=== PATIENT | male | born 1960 | race Caucasian/White ===

== ENCOUNTER 2023-03-08 22:29 | Observation (INO) | payer BC ==
--- OUTSIDE RECORDS SUMMARY | 2023-03-08 22:54 | XMS REPORT | Continuity of Care Document ---
:1960 Author Organization [facility] t Address [address] [place] [address] Care Team Providers Name Role Phone Fela Attending Clinician Unavailable RHONDA GREEN Attending Clinician Unavailable RA COTTON M.D. Attending Clinician Unavailable RA COTTON Attending Clinician Unavailable Fela Admitting Clinician Unavailable Payers Payer Name Policy Type Policy Number Effective Date Expiration Date S s[place] [id number] 2020 00:00:00 [place] Problems Condition Condition Condition Status Onset Resolution Last Treating Co mments Source Name Details Category Date Date Treatment Clinician Date Hyperlipid Hyperlipid Problem Active [facility] emia due emia Due 5-15 Family to type 2 to Type 2 00:00: Prac tic diabetes Diabetes 00 e mellitus Mellitus Type II Type II Problem Active [facility] diabetes Diabetes 8-23 Family mellitus Mellitus 00:00: Practi c uncontroll Uncontroll 00 e ed ed Mixed Mixed Problem Active 2019-08 [facility] hyperlipid Hyperlipid 2 [facility] emia emia 00:00: Practic 00 e Bipolar Bipolar Problem Active [facility] disorder Disorder 9-19 Family 00:00: Practic 00 e Nicotine Nicotine Problem Active Guzmán ge dependence Dependence 05-09 [facility] 00:00: Practic 00 e Otitis Otitis Problem Active [facility] externa Externa 05-09 Family 00:00: Practic e Hypertensi Hypertensi Problem Active [facility] ve ve 05-09 Family disorder Disorder 00:00: Practi c e Medication Medication Problem Active [facility] monitoring Monitoring 05-09 Timothy dinh 00:00: Practic e Hematoma Hematoma Problem Active [facility] of right of right Physic i knee knee ans region region Prepatella Prepatella Problem Active U T r bursitis r bursitis Ph ysici of right of right ans knee knee Encounter Encounter Problem Active [facility] for for Physici administra administra an s tion of tion of COVID-19 COVID-19 vaccine vaccine Allergies, Adverse Reactions, Alerts This patient has no known allergies or adverse reactions. Social History Smoking Status Start Date Stop Date Source Never Smoker [facility] P racmina Medications Ordered Filled Start Stop Current Ordering Indication Dosage Frequency Signature Comments Components Source Medication Medication Date Date Medication? Clinician (SIG) Name Name Sulfamethox Sulfamethox Yes RA 1 QD TAKE 1 UT azole-Trime azole-Trime 1-25 COTTON TABLET Physici thoprim thoprim 00:00: M.D. Daily TAKE a ns 800-160 MG 800-160 MG 00 2 TABLETS Oral Tablet Oral Tablet ON THE 1ST DAY AND 1 TABLET DAILY AFTER HYDROcodone HYDROcodone Yes RA Q6H TAKE 1 UT -Acetaminop -Acetaminop 1-22 COTTON TABLET Physici hen 10-325 hen 10-325 00:00: M.D. Every 6 ans MG Oral MG Oral 00 hours PRN Tablet Tablet for severe pain Senna Plus Senna Plus Yes RA 2 QD TAKE 2 UT 50-8.6 MG 50-8.6 MG 1-22 COTTON CAPSULE Physici Oral Oral 00:00: M.D. Daily FOR ans Capsule Capsule 00 CONSTIPATI ON Ondansetron Ondansetron Yes RA 1 Q8H TAKE 1 UT HCl - 4 MG HCl - 4 MG 1-22 COTTON TABLET Physici Oral Tablet Oral Tablet 00:00: M.D. EVERY 8 ans 00 HOURS PRN for Nausea metformin metformin No 2 BID metformin [facility] 500 mg 500 mg 500 mg Family tablet Take tablet Take tablet Practic 2 tablets 2 tablets Take 2 e twice a day twice a day tablets by oral by oral twice a route with route with day by meals. meals. oral route with meals. rosuvastati rosuvastati No rosuvastat [facility] n 20 mg n 20 mg in 20 mg Famil y tablet TAKE tablet TAKE tablet Practic 1 TABLET BY 1 TABLET BY TAKE 1 e MOUTH ONCE MOUTH ONCE TABLET BY DAILY IN DAILY IN MOUTH ONCE THE EVENING THE EVENING DAILY IN THE EVENING Rybelsus 7 Rybelsus 7 No 1 Q1D Rybelsus 7 [facility] mg tablet mg tablet mg tablet Family Take 1 Take 1 Take 1 Practic tablet tablet tablet e every day every day every day by oral by oral by oral route for route for route for 30 days. 30 days. 30 days. sertraline sertraline No sertraline [facility] 100 mg 100 mg 100 mg Family tablet TAKE tablet TAKE tablet Practic 1 TABLET BY 1 TABLET BY TAKE 1 e MOUTH ONCE MOUTH ONCE TABLET BY DAILY DAILY MOUTH ONCE DAILY ziprasidone ziprasidone No ziprasidon [facility] 40 mg 40 mg e 40 mg Family capsule capsule capsule Practi c TAKE 1 TAKE 1 TAKE 1 e CAPSULE BY CAPSULE BY CAPSULE BY MOUTH AT MOUTH AT MOUTH AT BEDTIME BEDTIME BEDTIME amlodipine amlodipine No amlodipine [facility] 5 mg tablet 5 mg tablet 5 mg F amily TAKE 1 TAKE 1 tablet Practic TABLET BY TABLET BY TAKE 1 e MOUTH ONCE MOUTH ONCE TABLET BY DAILY DAILY MOUTH ONCE DAILY Aspir-81 mg Aspir-81 mg No 1 Q1D Aspir-81 [facility] tablet,carol tablet,carol mg F amily yed release yed release tablet,del Practic Take 1 Take 1 ayed e tablet tablet release every day every day Take 1 by oral by oral tablet route. route. every day by oral route. fenofibrate fenofibrate No fenofibrat [facility] 160 mg 160 mg e 160 mg Family tablet TAKE tablet TAKE tablet Practic 1 TABLET BY 1 TABLET BY TAKE 1 e MOUTH ONCE MOUTH ONCE TABLET BY DAILY DAILY MOUTH ONCE DAILY lisinopril lisinopril No lisinopril [facility] 20 mg 20 mg 20 mg Family tablet TAKE tablet TAKE tablet Practic 1 TABLET BY 1 TABLET BY TAKE 1 e MOUTH ONCE MOUTH ONCE TABLET BY DAILY DAILY MOUTH ONCE DAILY metformin metformin No metformin [facility] 500 mg 500 mg 500 mg Family tablet TAKE tablet TAKE tablet Practic 1 TABLET BY 1 TABLET BY TAKE 1 e MOUTH TWICE MOUTH TWICE TABLET BY DAILY DAILY MOUTH TWICE DAILY rosuvastati rosuvastati No rosuvastat [facility] n 20 mg n 20 mg in 20 mg Famil y tablet TAKE tablet TAKE tablet Practic 1 TABLET BY 1 TABLET BY TAKE 1 e MOUTH ONCE MOUTH ONCE TABLET BY DAILY IN DAILY IN MOUTH ONCE THE EVENING THE EVENING DAILY IN THE EVENING Rybelsus 7 Rybelsus 7 No Rybelsus 7 [facility] mg tablet mg tablet mg tablet Family Take 1 Take 1 Take 1 Practic tablet by tablet by tablet by e mouth once mouth once mouth once daily daily daily sertraline sertraline No sertraline [facility] 100 mg 100 mg 100 mg Family tablet TAKE tablet TAKE tablet Practic 1 TABLET BY 1 TABLET BY TAKE 1 e MOUTH ONCE MOUTH ONCE TABLET BY DAILY DAILY MOUTH ONCE DAILY ziprasidone ziprasidone No ziprasidon [facility] 40 mg 40 mg e 40 mg Family capsule capsule capsule Practi c Take 1 Take 1 Take 1 e capsule by capsule by capsule by mouth at mouth at mouth at bedtime bedtime bedtime amlodipine amlodipine No amlodipine [facility] 5 mg tablet 5 mg tablet 5 mg F amily TAKE 1 TAKE 1 tablet Practic TABLET BY TABLET BY TAKE 1 e MOUTH ONCE MOUTH ONCE TABLET BY DAILY DAILY MOUTH ONCE DAILY Aspir-81 mg Aspir-81 mg No 1 Q1D Aspir-81 [facility] tablet,carol tablet,carol mg F amily yed release yed release tablet,del Practic Take 1 Take 1 ayed e tablet tablet release every day every day Take 1 by oral by oral tablet route. route. every day by oral route. fenofibrate fenofibrate No fenofibrat [facility] 160 mg 160 mg e 160 mg Family tablet TAKE tablet TAKE tablet Practic 1 TABLET BY 1 TABLET BY TAKE 1 e MOUTH ONCE MOUTH ONCE TABLET BY DAILY DAILY MOUTH ONCE DAILY FreeStyle FreeStyle No FreeStyle [facility] Bobbi 14 Bobbi 14 Bobbi 14 Fam jarad Day Sensor Day Sensor Day Sensor Practic kit USE kit USE kit USE e EVERY 2 EVERY 2 EVERY 2 WEEKS WEEKS WEEKS lisinopril lisinopril No lisinopril [facility] 20 mg 20 mg 20 mg Family tablet TAKE tablet TAKE tablet Practic 1 TABLET BY 1 TABLET BY TAKE 1 e MOUTH ONCE MOUTH ONCE TABLET BY DAILY DAILY MOUTH ONCE DAILY metformin metformin No metformin [facility] 500 mg 500 mg 500 mg Family tablet Take tablet Take tablet Practic 1 tablet by 1 tablet by Take 1 e mouth twice mouth twice tablet by daily daily mouth twice daily rosuvastati rosuvastati No rosuvastat [facility] n 20 mg n 20 mg in 20 mg Famil y tablet TAKE tablet TAKE tablet Practic 1 TABLET BY 1 TABLET BY TAKE 1 e MOUTH ONCE MOUTH ONCE TABLET BY DAILY IN DAILY IN MOUTH ONCE THE EVENING THE EVENING DAILY IN THE EVENING Rybelsus 14 Rybelsus 14 No 1 Q1D Rybelsus [facility] mg tablet mg tablet 14 mg Fami ly Take 1 Take 1 tablet Practic tablet tablet Take 1 e every day every day tablet by oral by oral every day route. route. by oral route. Rybelsus 7 Rykamsus 7 No Rykamsus 7 [facility] mg tablet mg tablet mg tablet Family Take 1 Take 1 Take 1 Practic tablet by tablet by tablet by e mouth once mouth once mouth once daily daily daily sertraline sertraline No sertraline [facility] 100 mg 100 mg 100 mg Family tablet TAKE tablet TAKE tablet Practic 1 TABLET BY 1 TABLET BY TAKE 1 e MOUTH ONCE MOUTH ONCE TABLET BY DAILY DAILY MOUTH ONCE DAILY ziprasidone ziprasidone No ziprasidon [facility] 40 mg 40 mg e 40 mg Family capsule capsule capsule Practi c Take 1 Take 1 Take 1 e capsule by capsule by capsule by mouth at mouth at mouth at bedtime bedtime bedtime amlodipine amlodipine No amlodipine [facility] 5 mg tablet 5 mg tablet 5 mg F amily TAKE 1 TAKE 1 tablet Practic TABLET BY TABLET BY TAKE 1 e MOUTH ONCE MOUTH ONCE TABLET BY DAILY DAILY MOUTH ONCE DAILY Aspir-81 mg Aspir-81 mg No 1 Q1D Aspir-81 [facility] tablet,carol tablet,carol mg F amily yed release yed release tablet,del Practic Take 1 Take 1 ayed e tablet tablet release every day every day Take 1 by oral by oral tablet route. route. every day by oral route. fenofibrate fenofibrate No fenofibrat [facility] 160 mg 160 mg e 160 mg Family tablet TAKE tablet TAKE tablet Practic 1 TABLET BY 1 TABLET BY TAKE 1 e MOUTH ONCE MOUTH ONCE TABLET BY DAILY DAILY MOUTH ONCE DAILY lisinopril lisinopril No lisinopril [facility] 20 mg 20 mg 20 mg Family tablet TAKE tablet TAKE tablet Practic 1 TABLET BY 1 TABLET BY TAKE 1 e MOUTH ONCE MOUTH ONCE TABLET BY DAILY DAILY MOUTH ONCE DAILY Immunizations Ordered Immunization Filled Immunization Date Status Commen ts Source Name Name influenza, influenza, 2022-04-29 Completed [facility] unspecified unspecified 00:00:00 Practice formulation formulation COVID-19, mRNA, COVID-19, mRNA, 2021-07-16 Completed Vill age Family LNP-S, PF, 30 LNP-S, PF, 30 00:00:00 Practice mcg/0.3 mL dose mcg/0.3 mL dose (Pfizer-BioNTech) (Pfizer-BioNTech) COVID-19, mRNA, COVID-19, mRNA, 2021-07-16 Completed Vill age Family LNP-S, PF, 30 LNP-S, PF, 30 00:00:00 Practice mcg/0.3 mL dose mcg/0.3 mL dose (Pfizer-BioNTech) (Pfizer-BioNTech) COVID-19, mRNA, COVID-19, mRNA, 2021-07-16 Completed [facility] Family LNP-S, PF, 30 LNP-S, PF, 30 00:00:00 Practice mcg/0.3 mL dose mcg/0.3 mL dose (Pfizer-BioNTech) (Pfizer-BioNTech) COVID-19, mRNA, COVID-19, mRNA, 2020-11-01 Completed [facility] Family LNP-S, PF, 30 LNP-S, PF, 30 00:00:00 Practice mcg/0.3 mL dose mcg/0.3 mL dose (Pfizer-BioNTech) (Pfizer-BioNTech) COVID-19, mRNA, COVID-19, mRNA, 2020-11-01 Completed [facility] Family LNP-S, PF, 30 LNP-S, PF, 30 00:00:00 Practice mcg/0.3 mL dose mcg/0.3 mL dose (Pfizer-BioNTech) (Pfizer-BioNTech) COVID-19, mRNA, COVID-19, mRNA, 2020-11-01 Completed [facility] Family LNP-S, PF, 30 LNP-S, PF, 30 00:00:00 Practice mcg/0.3 mL dose mcg/0.3 mL dose (Pfizer-BioNTech) (Pfizer-BioNTech) COVID-19, mRNA, COVID-19, mRNA, 2020-10-11 Completed [facility] Family LNP-S, PF, 30 LNP-S, PF, 30 00:00:00 Practice mcg/0.3 mL dose mcg/0.3 mL dose (Pfizer-BioNTech) (Pfizer-BioNTech) COVID-19, mRNA, COVID-19, mRNA, 2020-10-11 Completed [facility] Family LNP-S, PF, 30 LNP-S, PF, 30 00:00:00 Practice mcg/0.3 mL dose mcg/0.3 mL dose (Pfizer-BioNTech) (Pfizer-BioNTech) COVID-19, mRNA, COVID-19, mRNA, 2020-10-11 Completed Vill age Family LNP-S, PF, 30 LNP-S, PF, 30 00:00:00 Practice mcg/0.3 mL dose mcg/0.3 mL dose (Pfizer-BioNTech) (Pfizer-BioNTech) Pfizer-BioNTech 2020-10-11 Completed [facility] COVID-19 Vacc 30 00:00:00 MCG/0.3ML Intramuscular Suspension Tdap Tdap 2018-12-03 Completed [facility] Family 16:23:41 Practice Tdap Tdap 2018-12-03 Completed [facility] Family 16:23:41 Practice Tdap Tdap 2018-12-03 Completed [facility] Family 16:23:41 Practice Vital Signs Vital Name Observation Time Observation Value Comments Source BP Diastolic 2023-01-02 00:00:00 78 mm[Hg] [facility] Family Practice Height 2023-01-02 00:00:00 73 [in_i] [facility] Family Practice BMI (Body Mass 2023-01-02 00:00:00 30.2 kg/m2 [facility]) Practice BP Systolic 2023-01-02 00:00:00 130 mm[Hg] [facility] Practice Body Weight 2023-01-02 00:00:00 229 [lb_av] [facility] Family Practice BP Diastolic 2021-11-08 00:00:00 90 mm[Hg] [facility] Family Practice Height 2021-11-08 00:00:00 73 [in_i] [facility] Family Practice BMI (Body Mass 2021-11-08 00:00:00 31.7 [facility] BP Systolic 2021-11-08 00:00:00 140 mm[Hg] [facility] Family Practice Body Weight 2021-11-08 00:00:00 240 [lb_av] [facility] Family Practice Height 2021-04-12 00:00:00 73 [in_i] [facility] Practice BP Diastolic 2020-09-09 00:00:00 80 mm[Hg] [facility] Height 2020-09-09 00:00:00 73 [in_i] [facility] BMI (Body Mass 2020-09-09 00:00:00 31.7 kg/m2 [facility]) Practice BP Systolic 2020-09-09 00:00:00 130 mm[Hg] [facility] Body Weight 2020-09-09 00:00:00 240 [lb_av] [facility] Height 2020-01-21 00:00:00 73 [in_i] [facility] Practice BP Diastolic 2019-06-19 00:00:00 80 mm[Hg] [facility] Height 2019-06-19 00:00:00 73 [in_i] [facility] BMI (Body Mass 2019-06-19 00:00:00 31.4 kg/m2 [facility] Family Index) Practice BP Systolic 2019-06-19 00:00:00 130 mm[Hg] [facility] Body Weight 2019-06-19 00:00:00 238 [lb_av] [facility] Family Practice BP Diastolic 2018-12-03 00:00:00 80 mm[Hg] [facility] Height 2018-12-03 00:00:00 73 [in_i] [facility] Family Practice BMI (Body Mass 2018-12-03 00:00:00 31.9 kg/m2 [facility]) Practice BP Systolic 2018-12-03 00:00:00 130 mm[Hg] [facility] Family Practice Body Weight 2018-12-03 00:00:00 242 [lb_av] [facility] Family Practice Body height 2020-08-27 09:27:00 73 [in_us] [facility] Weight 2020-08-27 09:27:00 245 [lb_av] [facility] Body mass index 2020-08-27 09:27:00 32.32 kg/m2 [facility] (BMI) [Ratio] BP Diastolic 2017-11-07 00:00:00 86 mm[Hg] [facility] Height 2017-11-07 00:00:00 73 [in_i] [facility] Family Practice BMI (Body Mass 2017-11-07 00:00:00 31 kg/m2 [facility] Index) Practice BP Systolic 2017-11-07 00:00:00 134 mm[Hg] [facility] Body Weight 2017-11-07 00:00:00 235 [lb_av] [facility] BP Diastolic 2017-05-09 00:00:00 88 mm[Hg] [facility] Height 2017-05-09 00:00:00 73 [in_i] [facility] BMI (Body Mass 2017-05-09 00:00:00 31.2 kg/m2 [facility] Index) Practice BP Systolic 2017-05-09 00:00:00 132 mm[Hg] [facility] Body Weight 2017-05-09 00:00:00 236.2 [lb_av] [facility] Procedures Procedure Date / Time Performed Performing Clinician Sourc e US, kidney 2023-01-02 00:00:[address] [facility] ly Practice IMG RTA DETC/MNTR DS 2021-11-08 00:00:00 [facility] PHY/QHP Practice Post Op Promis 29 2020-10-16 00:00:00 [facility] [U] XRAY KNEE 4 OR 2020-09-10 00:00:00 [facility] MORE VWS RIGHT [id number] photo, eye, retina 2017-05-09 00:00:00 [facility] Practice Other 2013-08-21 00:00:00 [facility] Plan of Care Planned Activity Planned Date Details Comments Source Diagnostic Test 2023-01-02 HbA1c (hemoglobin [facility] Pending 00:00:00 A1c), blood [code Practice = HbA1c (hemoglobin A1c), blood] Diagnostic Test 2023-01-02 C[facility] 00:[facility]:00 plasma [code = Practice CMP, serum or plasma] Diagnostic Test 2023-01-02 lipid panel, serum [facility] Pending 00:00:00 [code = lipid Practice panel, serum] Diagnostic Test 2023-01-02 CBC w/ auto diff [facility] Pending 00:00:00 [code = CBC w/ Practice auto diff] Diagnostic Test 2023-01-02 TSH, [facility] 00:00:00 plasma [code = Practice TSH, serum or plasma] Diagnostic Test 2023-01-02 PSA, [facility] 00:00:00 plasma [code = Practice PSA, serum or plasma] Diagnostic Test 2023-01-02 microalbumin/creat [facility] Family Pending 00:00:00 inine, mass ratio, Practice urine [code = microalbumin/creat inine, mass ratio, urine] Diagnostic Test 2023-01-02 urinalysis, [facility] Derick reagan Pending 00:00:00 dipstick [code = Practice urinalysis, dipstick] Diagnostic Test 2023-01-02 fecal occult Sandra Sepulveda ly Pending 00:00:00 blood, stool [code Practice = fecal occult blood, stool] Future Appointment 2023-04-04 Sarah Alejo, [address] 00:00:00 Charlotte Tapia; Practice [address], [place] [address] Encounters Start End Encounter Admission Attending Care Care Encounter Source Date/Time Date/Time Type Type Clinicians Facility Department ID 2023-01-15 2023-01-15 Outpatient Domask_M_HO VFP VFP [id number] [facility] 00:00:00 00:00:00 U_ [id number] Family Practic e 2023-01-02 2023-01-02 Outpatient Domask_M VFP VFP [id number] [facility] 00:00:00 00:00:00 [id number] Family Practic e 2023-01-02 2023-01-02 Outpatient Domask_M VFP VFP [id number] [facility] 00:00:00 00:00:00 [id number] Family Practic e 2023-01-02 2023-01-02 Sarah VFP [place] - [id number] V illage 00:00:00 00:00:00 [facility] Addison Alejo, Medical - Practi bryan CARRILLO: [id number] [place] - nicci Porter [facility] [address], [place] [address] , Ph. 2022-12-30 2022-12-30 Outpatient Domask_M VFP VFP [id number] [facility] 00:00:00 00:00:00 [id number] Family Practic e 2022-12-30 2022-12-30 Outpatient VFP VFP [id number] [facility] 00:00:00 00:00:00 [id number] Family Practic e 2022-06-04 2022-06-04 Outpatient Domask_M VFP VFP [id number] [facility] 00:00:00 00:00:00 [id number] Family Practic e 2022-05-23 2022-05-23 Outpatient Domask_M VFP VFP [id number] [facility] 00:00:00 00:00:00 [id number] Family Practic e 2022-05-23 2022-05-23 Sarah VFP [place] - [id number] V illage 00:00:00 00:00:00 [facility] Mary Jane Alves MD: [id number] [facility] [address], [place] [address] , Ph. 2022-03-23 2022-03-23 Outpatient Domask_M VFP VFP [id number] [facility] 00:00:00 00:00:00 [id number] Family Practic e 2022-01-28 2022-01-28 Outpatient Domask_M VFP VFP [id number] [facility] 00:00:00 00:00:00 [id number] Family Practic e 2021-12-24 2021-12-24 Outpatient Domask_M VFP VFP [id number] [facility] 06:31:00 06:31:00 [id number] Family Practic e 2021-11-18 2021-11-18 Outpatient Domask_M VFP VFP [id number] [facility] 03:40:00 03:40:00 [id number] Family Practic e 2021-11-15 2021-11-15 Outpatient Domask_M VFP VFP [id number] [facility] 04:09:00 04:09:00 [id number] Family Practic e 2021-11-08 2021-11-08 Outpatient Domask_M VFP VFP [id number] [facility] 04:16:00 04:16:00 [id number] Family Practic e 2021-11-08 2021-11-08 Sarah VFP [place] - [id number] V illage 00:00:00 00:00:00 [facility] Mary Jane Alves MD: [id number] grajeda Charoltte [facility], [address], [place] [address] , Ph. 2021-11-05 2021-11-05 Outpatient Domask_M VFP VFP [id number] [facility] 11:17:00 11:17:00 [id number] Family Practic e 2021-11-03 2021-11-03 Outpatient Domask_M VFP VFP [id number] [facility] 07:50:00 07:50:00 [id number] Family Practic e 2021-07-02 2021-07-02 Outpatient Domask_M VFP VFP [id number] - [facility] 01:44:00 01:44:00 [id number] Family Practic e 2021-05-28 2021-05-28 Outpatient Domask_M VFP VFP [id number] - [facility] 02:28:00 02:28:00 [id number] Family Practic e 2021-05-28 2021-05-28 Outpatient Domask_M VFP VFP [id number] - [facility] 02:28:00 02:28:00 [id number] Family Practic e 2021-04-24 2021-04-24 Outpatient Domask_M VFP VFP [id number] [facility] 01:02:00 01:02:00 [id number] Family Practic e 2021-04-14 2021-04-14 Outpatient Domask_M VFP VFP [id number] - [facility] 05:36:00 05:36:00 [id number] Family Practic e 2021-04-12 2021-04-12 Outpatient Domask_M VFP VFP [id number] - [facility] 05:46:00 05:46:00 [id number] Family Practic e 2021-04-12 2021-04-12 Sarah VFP [place] - [id number] V illage 00:00:00 00:00:00 [facility] Addison y Sapna, Medical - Practi bryan CARRILLO: [address] _Natalie grajeda [facility], [address], [place] [address] , Ph. 2021-04-01 2021-04-01 Outpatient Domask_M VFP VFP [id number] 202 [facility] 02:23:00 02:23:00 [id number] Family Practic e 2020-10-11 2020-10-11 Appointmen TEO GREEN [id number] [place] 17:40:00 17:40:00 t; CO19, NURSE-TERRIE pacheco NURSE-ROBERT Y ans EY 2020-09-24 2020-09-24 [id number] [place] 10:00:00 10:00:00 t; Favio KNAPP at [facility] bhargavi KNAPP, [facility], POD 3 2020-09-24 2020-09-24 Outpatient Domask_M VFP VFP [id number] -[id number] [facility] 02:02:00 02:02:00 [id number] Family Practic e 2020-09-24 2020-09-24 Outpatient Domask_M VFP VFP [id number] -[id number] [facility] 02:02:00 02:02:00 [id number] Family Practic e 2020-09-17 2020-09-17 [facility] [id number] [place] 10:15:00 10:15:00 t; Favio KNAPP at [facility] bhargavi KNAPP, [facility], POD 3 2020-09-14 2020-09-14 Outpatient LULA, [facility] [id number] 08:05:00 23:59:00 RA [facility] 2020-09-14 2020-09-14 [facility] [id number] [place] 11:00:00 11:00:00 t; Paul KNAPP. [facility] bhargavi COTTON M.D. 2020-09-11 2020-09-11 Outpatient Domask_M VFP VFP [id number] [facility] 04:27:00 04:27:00 [id number] Family Practic e 2020-09-10 2020-09-10 Cherelle COTTON [facility] Orthopedics [id number] [place] 10:45:00 10:45:00 t; Favio KNAPP at [facility] bhargavi KNAPP Medicine Favio [facility] 2020-09-09 2020-09-09 Outpatient Domask_M VFP VFP [id number] -[id number] [facility] 12:06:00 12:06:00 [id number] Family Practic e 2020-09-09 2020-09-09 Sarah VFP [place] - [id number] V illage 00:00:00 00:00:00 [facility] Mary Jane Alves - Sanaz adams MD: 9[address] FIFIHOU_[facility] nicci Charlotte garrettdeuce [facility], [address], [place] [address] , Ph. 2020-08-27 2020-08-27 Fadyping COTTON [facility] [id number] [place] 09:15:00 09:15:00 t; Paul KNAPP. [facility] bhargavi COTTON M.D. 2020-07-30 2020-07-30 Outpatient VFP VFP [id number] [facility] 11:53:00 11:53:00 [id number] Family Practic e 2020-07-30 2020-07-30 Outpatient VFP VFP [id number] [facility] 11:53:00 11:53:00 [id number] Family Practic e 2020-07-30 2020-07-30 Outpatient Domask_M VFP VFP [id number] -202 [facility] 11:53:00 11:53:00 [id number] Family Practic e 2020-07-29 2020-07-29 Outpatient Domask_M VFP VFP [id number] -202 [facility] 04:16:00 04:16:00 [id number] Family Practic e 2020-07-29 2020-07-29 Sarah VFP [place] - [id number] V illage 00:00:00 00:00:00 [facility] Mary Jane Alves MD: [id number] FIFIHOU_Memo nicci [place] [facility], [address], [place] [address] , Ph. 2020-01-26 2020-01-26 Outpatient Domask_M VFP VFP [id number] -202 [facility] 08:26:00 08:26:00 [id number] Family Practic e 2020-01-26 2020-01-26 Outpatient VFP VFP [id number]- 202 [facility] 08:26:00 08:26:00 [id number] Family Practic e 2020-01-21 2020-01-21 Outpatient Domask_M VFP VFP [id number] -202 [facility] 03:44:00 03:44:00 [id number] Family Practic e 2020-01-21 2020-01-21 Sarah VFP [place] - [id number] V illage 00:00:00 00:00:00 [facility] Mary Jane Alves - Sanaz adams MD: [id number] FIFIHOU_Memo e [place] rial [facility] [address] [address] , Ph. 2019-11-26 2019-11-26 Outpatient Domask_M VFP [facility] [id number] -202 [facility] 11:21:00 11:21:00 [id number] Family Practic e 2019-11-26 2019-11-26 Outpatient Domask_M VFP [facility] [id number] -202 [facility] 11:21:00 11:21:00 [id number] Family Practic e 2019-06-19 2019-06-19 Sarah VFP [place] - [id number] V illage 00:00:00 00:00:00 [facility] Famil y Domask, Family Practic MD: [id number] Practice - e [place] [address] [address] , Ph. 2018-12-03 2018-12-03 Sarah VFP [place] - [id number] V illage 00:00:00 00:00:00 [facility] Famil y Domask, Family Practic MD: [id number] Practice - e [place] [address] [address] , Ph. 2017-11-07 2017-11-07 Sarah VFP [place] - [id number] V illage 00:00:00 00:00:00 [facility] Famil y Domask, Family Practic MD: [id number] Practice - e [place] [address] [address] , Ph. 2017-05-09 2017-05-09 Sarah VFP [place] - [id number] V illage 00:00:00 00:00:00 [facility] Famil y Domask, Family Practic MD: [id number] Practice - e [place] [address] [address] , Ph. Results Test Description Test Time Test Comments Results Result Comments Source Urinalysis macro (dipstick) panel - Urine 2023-01-02 15:11:5 1 Test Item Value Reference Range Interpretation Comme nts Interpretation UA test performed using: Automated device/analyzer ( [id number],QW) (test code = Interpretation UA test performed using:) Interpretation Color (test code = Yellow Interpretation Color) Interpretation Clarity (test code = Clear Interpretation Clarity) Interpretation Glucose (mg/dL) (test code Negative = Interpretation Glucose (mg/dL)) Interpretation Bilirubin (test code = Negative Interpretation Bilirubin) Interpretation Ketone (mg/dL) (test code = Negative Interpretation Ketone (mg/dL)) Interpretation Specific [place] (test code 1.025 = Interpretation Specific [place]) Interpretation Occult Blood (test code = Negative Interpretation Occult Blood) Interpretation pH (test code = 5 Interpretation pH) Interpretation Protein (test code = Negative Interpretation Protein) Interpretation Urobilinogen (test code = 0.2 Interpretation Urobilinogen) Interpretation Nitrites (test code = Negative Interpretation Nitrites) Interpretation Leukocytes (test code = Negative Interpretation Leukocytes) [facility] Practice[U] XRAY KNEE 4 OR MORE VWS RIGHT [id number] 11:14:00Images acquired, not reported on this accession number.[facility] Comprehensive metabolic 2000 panel - Serum or [id number] 13:56:00 Test Item Value Reference Range Interpretation Comments ALT (test code = ALT) 38 U/L 0-55 AST (test code = AST) 23 U/L 5-34 BUN (test code = BUN) 16.0 mg/dL 8.4-25.7 alk phos (test code = alk phos) 57 unit/L 40-150 glucose (test code = glucose) 103 mg/dL 70-99 H albumin (test code = albumin) 3.8 g/dL 3.5-5.0 creatinine (test code = 0.98 mg/dL 0.72-1.25 creatinine) eGFR non- (test >60 >60 code = eGFR non-) total bilirubin (test code = 0.4 mg/dL 0.2-1.2 total bilirubin) eGFR - (test >60 >60 code = eGFR - ) sodium (test code = sodium) 143 mEq/L 136-145 potassium (test code = potassium) 4.1 mEq/L 3.5-5.1 chloride (test code = chloride) 109 mmol/L 98-107 H total protein (test code = total 6.8 g/dL 6.4-8.3 protein) calcium (test code = calcium) 9.5 mg/dL 8.4-10.2 CO2 (test code = CO2) 23.2 mmol/L 22.0-29.0 anion gap (test code = anion gap) 11 calc [facility] - Serum or [id number] 13:56:00 Test Item Value Reference Range Interpretation Comments HDL (test code = HDL) 56 mg/dL 40-60 triglyceride (test code = 197 mg/dL 0-149 H triglyceride) VLDL calc. (test code = VLDL calc.) 39 mg/dL cholesterol/HDL ratio (test code = 4.9 mg/dL cholesterol/HDL ratio) non-HDL cholesterol calc. (test 217 mg/dL 0-160 H code = non-HDL cholesterol calc.) cholesterol (test code = 273 mg/dL 0-199 H cholesterol) LDL calc. (test code = LDL calc.) 178 mg/dL 0-130 H [facility] [Units/volume] in Serum or [id number] 13:56:00 Test Item Value Reference Range Interpretation Comments TSH (test code = TSH) 1.540 uIU/mL 0.350-4.940 [facility] Differential panel - [id number] 16:32:00 Test Item Value Reference Range Interpretation Comments WBC (test code = WBC) 8.00 x10*3/?L 4.23-9.07 RBC (test code = RBC) 4.93 10*12/L 4.63-6.08 hemoglobin (test code = 15.00 g/dL 13.70-17.50 hemoglobin) hematocrit (test code = 45.0 % 40.1-51.0 hematocrit) MCV (test code = MCV) 91.3 fL 80.0-100.0 MCH (test code = MCH) 30.4 pg 25.7-32.2 MCHC (test code = MCHC) 33.3 g/dL 32.3-36.5 RDW-SD (test code = RDW-SD) 41.6 fL 35.1-43.9 platelet count (test code = 250.0 k/uL 163.0-337.0 platelet count) MPV (test code = MPV) 11.5 fL 7.5-11.5 neut% (test code = neut%) 71.0 % 34.0-67.9 H lymph% (test code = lymph%) 19.6 % 21.8-53.1 L mon% (test code = mon%) 7.3 % 5.3-12.2 eos% (test code = eos%) 1.5 % 0.8-7.0 baso% (test code = baso%) 0.6 % 0.2-1.2 neut# (test code = neut#) 5.7 x10*3/?L 1.8-5.4 H lymph# (test code = lymph#) 1.6 x10*3/?L 1.3-3.6 mon# (test code = mon#) 0.6 x10*3/?L 0.3-0.8 eos# (test code = eos#) 0.12 x10*3/?L 0.04-0.54 baso# (test code = baso#) 0.05 x10*3/?L 0.01-0.08 [facility] A[facility]/Hemoglobin.total in [id number] 15:17:00 Test Item Value Reference Range Interpretation Comments A1C w/EAG (test code = A1C w/EAG) 7.0 % 1.0-5.7 H average blood glucose (test code = 154 mg/dL average blood glucose) [facility]
--- NOTE | 2023-03-08 22:56 | EDPHYS ---
Physician Documentation [facility] Name: Abdias Galvez Age: 62 yrs Sex: Male : 1960 Arrival Date: 03/08/2023 Time: 22:29 Bed 13 Private MD: ED Physician Leroy Patino HPI: 03/08 22:43 This 62 yrs old Male presents to ER via Ambulatory with complaints of Chest reynold Pain. 22:43 The patient or guardian reports chest pain that is located primarily in the substernal reynold area. Onset: just prior to arrival. The pain radiates to the left arm. Associated signs and symptoms: Pertinent positives: None. The chest pain is described as a heaviness, a pressure. Duration: The patient or guardian reports a single episode, that is still ongoing. Severity of pain: At its worst the pain was mild in the emergency department the pain is unchanged. The patient has not experienced similar symptoms in the past. Historical: - Allergies: 22:39 No Known Allergies; kd3 - PMHx: 22:39 Hypercholesterolemia; Hypertensive disorder; kd3 - Immunization history:: Adult Immunizations up to date. - Social history:: Smoking status: Patient reports use of chewing tobacco. - Family history:: not pertinent. ROS: 22:43 Constitutional: Negative for fever, chills, and weight loss, Eyes: Negative for injury, reynold pain, redness, and discharge, ENT: Negative for injury, pain, and discharge, Neck: Negative for injury, pain, and swelling, Respiratory: Negative for shortness of breath, cough, wheezing, and pleuritic chest pain, Abdomen/GI: Negative for abdominal pain, nausea, vomiting, diarrhea, and constipation, Back: Negative for injury and pain, : Negative for injury, bleeding, discharge, and swelling, MS/Extremity: Negative for injury and deformity, Skin: Negative for injury, rash, and discoloration, Neuro: Negative for headache, weakness, numbness, tingling, and seizure, Psych: Negative for depression, anxiety, suicide ideation, homicidal ideation, and hallucinations, Allergy/Immunology: Negative for hives, rash, and allergies, Endocrine: Negative for neck swelling, polydipsia, polyuria, polyphagia, and marked weight changes, Hematologic/Lymphatic: Negative for swollen nodes, abnormal bleeding, and unusual bruising. 22:43 Cardiovascular: Positive for chest pain, of the chest. Exam: 22:43 Constitutional: This is a well developed, well nourished patient who is awake, alert, reynold and in no acute distress. Head/Face: Normocephalic, atraumatic. Eyes: Pupils equal round and reactive to light, extra-ocular motions intact. Lids and lashes normal. Conjunctiva and sclera are non-icteric and not injected. Cornea within normal limits. Periorbital areas with no swelling, redness, or edema. ENT: Nares patent. No nasal discharge, no septal abnormalities noted. Tympanic membranes are normal and external auditory canals are clear. Oropharynx with no redness, swelling, or masses, exudates, or evidence of obstruction, uvula midline. Mucous membranes moist. Neck: Trachea midline, no thyromegaly or masses palpated, and no cervical lymphadenopathy. Supple, full range of motion without nuchal rigidity, or vertebral point tenderness. No Meningismus. Chest/axilla: Normal chest wall appearance and motion. Nontender with no deformity. No lesions are appreciated. Cardiovascular: Regular rate and rhythm with a normal S1 and S2. No gallops, murmurs, or rubs. Normal PMI, no JVD. No pulse deficits. Respiratory: Lungs have equal breath sounds bilaterally, clear to auscultation and percussion. No rales, rhonchi or wheezes noted. No increased work of breathing, no retractions or nasal flaring. Abdomen/GI: Soft, non-tender, with normal bowel sounds. No distension or tympany. No guarding or rebound. No evidence of tenderness throughout. Back: No spinal tenderness. No costovertebral tenderness. Full range of motion. Male : Normal genitalia with no discharge or lesions. Skin: Warm, dry with normal turgor. Normal color with no rashes, no lesions, and no evidence of cellulitis. MS/ Extremity: Pulses equal, no cyanosis. Neurovascular intact. Full, normal range of motion. Neuro: Awake and alert, GCS 15, oriented to person, place, time, and situation. Cranial nerves II-XII grossly intact. Motor strength 5/5 in all extremities. Sensory grossly intact. Cerebellar exam normal. Normal gait. Psych: Awake, alert, with orientation to person, place and time. Behavior, mood, and affect are within normal limits. 22:55 ECG was reviewed by the Attending Physician. [facility] Vital Signs: 22:46 BP 178 / 92; Pulse 73; Resp 18; Temp 98.1(TE); Pulse Ox 99% on R/A; jb4 23:16 BP 167 / 87 LA; cm10 23:16 BP 166 / 84 RA; cm10 03/09 00:40 Weight 98.43 kg; jb4 NIH Stroke Scale Scores: 03/08 23:21 NIHSS Score: 0 reynold MDM: 22:35 Patient medically screened. reynold 22:43 Differential diagnosis: abnormal EKG, acute pericarditis, anxiety, coronary artery reynold disease chest wall pain, Cholelithiasis gastroesophageal reflux disease (GERD), hiatal hernia, pancreatitis, peptic ulcer disease, pneumonia, pulmonary embolus, stable angina, unstable angina. HEART Score: History: Moderately Suspicious (1), ECG: Normal (0), Age: > 45 and < 65 years (1), Risk Factors: > or = 3 Risk factors for atherosclerotic disease (2), [Hypercholesterolemia] [Hypertension] [+ Family HX] [Obesity] Troponin: < or = 1 x Normal Limit (0). The patient was given aspirin in the Emergency Department. TAN Risk Score: 1 - Three or more CAD risk factors, TOTAL SCORE = 1. Data reviewed: vital signs, nurses notes, lab test result(s), EKG, radiologic studies, plain films. Consideration of Admission/Observation Patient was admitted/placed on observation. Escalation of care including admission/observation considered. I considered the following discharge prescriptions or medication management in the emergency department Medications were administered in the Emergency Department. See MAR. Test considered but Not performed: CT: no ct chest. 03/08 22:36 Order name: Basic Metabolic Panel [facility] 03/08 22:36 Order name: CBC with Diff 03/08 22:36 Order name: LFT's 03/08 22:36 Order name: Magnesium 03/08 22:36 Order name: NT PRO-BNP 03/08 22:36 Order name: PT-INR [facility] 03/08 22:36 Order name: Troponin HS [facility] 03/08 22:36 Order name: Lipase 03/08 22:36 Order name: Urinalysis w/ reflexes 03/08 22:36 Order name: XRAY Chest (1 view) [facility] 03/08 22:43 Order name: CT Head Brain wo Cont [facility] 03/08 22:36 Order name: EKG; Complete Time: 22:37 [facility] 03/08 22:36 Order name: Cardiac monitoring; Complete Time: 22:42 [facility] 03/08 22:36 Order name: EKG - Nurse/Tech; Complete Time: 22:42 [facility] 03/08 22:36 Order name: IV Saline Lock; Complete Time: 23:16 [facility] 03/08 22:36 Order name: Labs collected and sent; Complete Time: 23:16 [facility] 03/08 22:36 Order name: O2 Per Protocol; Complete Time: 23:16 [facility] 03/08 22:36 Order name: O2 Sat Monitoring; Complete Time: 23:16 [facility] 03/08 22:57 Order name: Bilateral blood pressure; Complete Time: 23:14 [facility] EC:55 Rate is 77 beats/min. Rhythm is regular. QRS [place] is Normal. [place] interval is normal. QRS reynold interval is normal. QT interval is normal. No Q waves. T waves are Normal. No ST changes noted. Clinical impression: NSR w/ Non-specific ST/T Changes and No evidence of ischemia. Interpreted by me. Reviewed by me. Administered Medications: 23:14 Drug: Ondansetron IVP 4 mg Route: IVP; Site: right antecubital; cm10 23:58 Follow up: Response: No adverse reaction cm10 23:14 Drug: morphine IVP or IV 2 mg Route: IVP; Infused Over: 4 mins; Site: right antecubital;cm10 23:58 Follow up: Response: No adverse reaction; Pain is unchanged, physician notified cm10 23:14 Drug: Famotidine IVP 20 mg Route: IVP; Site: right antecubital; cm10 23:57 Follow up: Response: No adverse reaction cm10 23:14 Drug: Metoprolol PO 25 mg Route: PO; cm10 23:57 Follow up: Response: No adverse reaction cm10 23:15 Drug: Aspirin PO Chewable Tablet 243 mg {Note: Pt took 1 baby aspirin TIN FLIPPER.} Route: PO; cm10 23:57 Drug: Potassium PO Effervescent Tablet 50 mEq Route: PO; cm10 03/09 00:44 Drug: Enoxaparin Sub-Q 1 mg/kg Route: Sub-Q; Site: right upper abdomen; jb4 00:47 Not Given (Patient Refused): morphine IVP or IV 2 mg IVP once over 4 mins jb4 Disposition Summary: 03/08/23 22:55 Hospitalization Ordered Hospitalization Status: Observation reynold Provider: Wade Hickman cha Location: Telemetry/MedSurg (observation) reynold Condition: Stable reynold Problem: new reynold Symptoms: have improved reynold Bed/Room Type: Standard reynold Room Assignment: 429(03/08/23 23:43) cg Diagnosis - Chest pain, unspecified reynold - Angina pectoris, unspecified reynold - Essential (primary) hypertension reynold - Hyperlipidemia, unspecified reynold - Hypokalemia reynold Forms: - Medication Reconciliation Form reynold - SBAR form reynold NIH Stroke Scale - NIH Stroke Score Date: 03/08/2023 Time: 23:21 Total Score = 0 10. Dysarthria (speech clarity - read or repeat words) - 0(Normal) 11. Extinction and Inattention (visual/tactile/auditory/spatial/personal) - 0(No abnormality) 1a. Level of Consciousness (LOC) - 0(Alert) 1b. Level of Consciousness (LOC) (Month \T\ Age) - 0(Both) 1c. LOC Commands (Open \T\ Closes Eyes/Information Systems Consultant) - 0(Both) 2. Best Gaze (Lateral Gaze Paresis) - 0(Normal) 3. Visual Field Loss - 0(No visual loss) 4. Facial Palsy - 0(Normal) 5a. Left Arm: Motor (10-second hold) - 0(No drift) 5b. Right Arm: Motor (10-second hold) - 0(No drift) 6a. Left Leg: Motor (5-second hold - always test supine) - 0(No drift) 6b. Right Leg: Motor (5-second hold - always test supine) - 0(No drift) 7. Limb Ataxia (finger/nose \T\ heel/garrison - test with eyes open) - 0(Absent) 8. Sensory Loss (pinprick arms/legs/face) - 0(Normal) 9. Best Language: Aphasia (description/naming/reading) - 0(No aphasia) Initials: reynold Signatures: Dispatcher [employer] EDLeroy Carr MD MD cha Garcia, Cindy, RN RN cg Bryson, James, RN RN jb4 Adrienne Rodriguez RN RN kd3 Zo Austin RN RN cm10 Corrections: (The following items were deleted from the chart) 03/08 23:43 22:55 reynold
--- NOTE | 2023-03-08 22:56 | ER ---
Nurse's Notes [facility] Name: Abdias Galvez Age: 62 yrs Sex: Male : 1960 Arrival Date: 03/08/2023 Time: 22:29 Bed 13 Private MD: Diagnosis: Chest pain, unspecified;Angina pectoris, unspecified;Essential (primary) hypertension;Hyperlipidemia, unspecified;Hypokalemia Presentation: 03/08 22:38 Chief complaint: Patient states: I have had a weird headache for about a week, but kd3 today, about an hour ago, i started having chest pains in the middle of my chest with some numbness on the left side. The numbness is in my left arm, left face, and left thigh. Coronavirus screen: Vaccine status: Patient reports receiving the 2nd dose of the covid vaccine. Ebola Screen: No symptoms or risks identified at this time. Initial Sepsis Screen: Does the patient meet any 2 criteria? No. Patient's initial sepsis screen is negative. Does the patient have a suspected source of infection? No. Patient's initial sepsis screen is negative. Risk Assessment: Do you want to hurt yourself or someone else? Patient reports no desire to harm self or others. Onset of symptoms was March 08, 2023. 22:38 Method Of Arrival: Ambulatory kd3 22:38 Acuity: KALIA 3 kd3 Triage Assessment: 22:39 General: Appears in no apparent distress. Behavior is calm, cooperative. Pain: kd3 Complains of pain in chest. Cardiovascular: Patient's skin is warm and dry. Historical: - Allergies: 22:39 No Known Allergies; kd3 - PMHx: 22:39 Hypercholesterolemia; Hypertensive disorder; kd3 - Immunization history:: Adult Immunizations up to date. - Social history:: Smoking status: Patient reports use of chewing tobacco. - Family history:: not pertinent. Screenin:32 [facility] ED Fall Risk Assessment (Adult) History of falling in the last 3 months, cm10 including since admission No falls in past 3 months (0 pts) Confusion or Disorientation No (0 pts) Intoxicated or Sedated No (0 pts) Impaired Gait No (0 pts) Mobility Assist Device Used No (0 pt) Altered Elimination No (0 pt) Score/Fall Risk Level 0 - 2 = Low Risk Oriented to surroundings, Maintained a safe environment, Hourly rounding (assess needs \T\ fall precautionary measures) done. Abuse screen: Denies threats or abuse. Denies injuries from another. Nutritional screening: No deficits noted. Tuberculosis screening: No symptoms or risk factors identified. Assessment: 22:43 General: DR to bedside for evaluation. stated, code stroke would not be called for kd3 this patient. . 23:30 Pain: Complains of pain in chest Pain does not radiate. Pain Quality of pain is cm10 described as weight on chest Pain began 2 hours ago. Is continuous, Aggravated by laying on back and taking deep breaths. Neuro: No deficits noted. Level of Consciousness is awake, alert, Oriented to person, place, time, situation. Cardiovascular: No deficits noted. Reports chest pain, Capillary refill < 3 seconds Rhythm is regular Chest pain. Respiratory: No deficits noted. Airway is patent Respiratory effort is even, unlabored, Respiratory pattern is regular, symmetrical. Vital Signs: 22:46 BP 178 / 92; Pulse 73; Resp 18; Temp 98.1(TE); Pulse Ox 99% on R/A; jb4 23:16 BP 167 / 87 LA; cm10 23:16 BP 166 / 84 RA; cm10 03/09 00:40 Weight 98.43 kg; jb4 NIH Stroke Scale Scores: 03/08 23:21 NIHSS Score: 0 [facility] ED Course: 22:34 Patient arrived in ED. kd3 22:35 Leroy Patino MD is Attending Physician. reynold 22:39 Triage completed. kd3 22:39 Arm band placed on left wrist. kd3 22:49 Zo Austin, ALEKSANDR is Primary Nurse. cm10 22:52 Wade Hickman MD is Hospitalizing Provider. reynold 23:26 CT Head Brain wo Cont In Process Unspecified. EDMS 23:30 Patient moved back from CT. cm10 23:32 Patient has correct armband on for positive identification. Bed in low position. Call cm10 light in reach. Side rails up X2. Provided Education on:. Client placed on continuous cardiac and pulse oximetry monitoring. NIBP monitoring applied. 23:33 Inserted saline lock: 20 gauge in right antecubital area, using aseptic technique. cm10 23:34 XRAY Chest (1 view) In Process Unspecified. EDMS 23:59 Adrienne Rodriguez, RN is Primary Nurse. 3 03/09 01:12 No provider procedures requiring assistance completed. Patient admitted, IV remains in kd3 place. Patient maintains SpO2 saturation greater than 95% on room air. Administered Medications: 03/08 23:14 Drug: Ondansetron IVP 4 mg Route: IVP; Site: right antecubital; cm10 23:58 Follow up: Response: No adverse reaction cm10 23:14 Drug: morphine IVP or IV 2 mg Route: IVP; Infused Over: 4 mins; Site: right antecubital;cm10 23:58 Follow up: Response: No adverse reaction; Pain is unchanged, physician notified cm10 23:14 Drug: Famotidine IVP 20 mg Route: IVP; Site: right antecubital; cm10 23:57 Follow up: Response: No adverse reaction cm10 23:14 Drug: Metoprolol PO 25 mg Route: PO; cm10 23:57 Follow up: Response: No adverse reaction cm10 23:15 Drug: Aspirin PO Chewable Tablet 243 mg {Note: Pt took 1 baby aspirin PEANUT SORTER.} Route: PO; cm10 23:57 Drug: Potassium PO Effervescent Tablet 50 mEq Route: PO; cm10 03/09 00:44 Drug: Enoxaparin Sub-Q 1 mg/kg Route: Sub-Q; Site: right upper abdomen; jb4 00:47 Not Given (Patient Refused): morphine IVP or IV 2 mg IVP once over 4 mins jb4 Medication: 01:12 VIS not applicable for this client. kd3 Outcome: 03/08 22:55 Decision to Hospitalize by Provider. [facility] 03/09 01:12 Admitted to Med/surg kd3 Condition: stable Discharge instructions given to patient, Instructed on the need for admit, Demonstrated understanding of instructions. 01:13 Patient left the ED. kd3 NIH Stroke Scale - NIH Stroke Score Date: 03/08/2023 Time: 23:21 Total Score = 0 10. Dysarthria (speech clarity - read or repeat words) - 0(Normal) 11. Extinction and Inattention (visual/tactile/auditory/spatial/personal) - 0(No abnormality) 1a. Level of Consciousness (LOC) - 0(Alert) 1b. Level of Consciousness (LOC) (Month \T\ Age) - 0(Both) 1c. LOC Commands (Open \T\ Closes Eyes/Gis Technician) - 0(Both) 2. Best Gaze (Lateral Gaze Paresis) - 0(Normal) 3. Visual Field Loss - 0(No visual loss) 4. Facial Palsy - 0(Normal) 5a. Left Arm: Motor (10-second hold) - 0(No drift) 5b. Right Arm: Motor (10-second hold) - 0(No drift) 6a. Left Leg: Motor (5-second hold - always test supine) - 0(No drift) 6b. Right Leg: Motor (5-second hold - always test supine) - 0(No drift) 7. Limb Ataxia (finger/nose \T\ heel/garrison - test with eyes open) - 0(Absent) 8. Sensory Loss (pinprick arms/legs/face) - 0(Normal) 9. Best Language: Aphasia (description/naming/reading) - 0(No aphasia) Initials: reynold Signatures: Dispatcher [employer] Leroy Phillips MD MD cha Bryson, James, RN RN jb4 Adrienne Rodriguez RN RN kd3 Zo Austin, RN RN cm10
[2023-03-08 22:57] LABS: Protime INR 0.97
[2023-03-08 22:59] LABS: Absolute Lymphocytes (CBC) 1.8 K/uL (0.7-4.9); Hematocrit 42.9 % (39.6-49.0); Lymphocytes % 17.4 % (15.3-44.8); MCV 90.3 fL (80-100); MPV 9.3 fL (7.6-11.3); RBC Red Blood Cell Count 4.75 M/uL (4.33-5.43)
[2023-03-08] MEDS ORDERED: ASPIRIN 81 MG CHEWABLE TABLET ONE (23:07)
[2023-03-08] MEDS ORDERED: METOPROLOL TAR 25 MG TAB ONE (23:08)
[2023-03-08] MEDS ORDERED: FAMOTIDINE 20 MG/2 ML VIAL IV ONE (23:08)
[2023-03-08] MEDS ORDERED: MORPHINE 2 MG/ML SYR ONE (23:08)
[2023-03-08] MEDS ORDERED: ONDANSETRON 4 MG/2 ML VIAL ONE (23:10)
[2023-03-08 23:16] LABS: Albumin 3.6 g/dL (3.4-5.0); Bilirubin Direct 0.1 mg/dL (0-0.2); Bilirubin Indirect, Calculated 0.3 mg/dL (0.2-0.8); Bilirubin Total 0.4 mg/dL (0.2-1.0); Magnesium 2.2 mg/dL (1.6-2.4); Potassium 3.3 mEq/L (3.5-5.1); Protein, Total 6.9 g/dL (6.4-8.2); Troponin High Sensitivity 8.4 pg/mL (<58.9)
[2023-03-09] MEDS ORDERED: POTASSIUM 25 MEQ EFFERV TAB ONE (00:02)
--- NOTE | 2023-03-09 00:11 | P.HP ---
Certification for Inpatient Patient admitted to: Observation With expected LOS: <2 Midnights Patient will require the following post-hospital care: None Practitioner: I am a practitioner with admitting privileges, knowledge of patient current condition, hospital course, and medical plan of care. Services: Services provided to patient in accordance with Admission requirements found in Title 42 Section 412.3 of the Code of Federal Regulations Patient History Date of Service: 03/08/23 Reason for admission: Chest pain History of Present Illness: 62-year-old male with history of hypertension, hyperlipidemia presented to the emergency department with chief complaint of chest pain. He reports that he was at home sitting on the couch watching TV he began to have left-sided chest pain radiating down his left arm described as pressure. His last cardiac evaluation was approximately 7 years ago with a stress test, he has never had a heart catheterization in the past. His initial has not to be troponin was 8.4, potassium 3.3 AST 58 ALT 81. He has no abdominal tenderness EKG without STEMI criteria chest x-ray was negative for acute findings CT head also negative for acute findings which was obtained given his left arm numbness/tingling associated with this chest pain. ED provider wishes to admit under observation for ACS rule out. - Past Medical/Surgical History -: Hypertension -: Hyperlipidemia -: Ankle surgery Psychosocial/ Personal History: Patient works as a construction sales representative, lives at home with his - Family History Father -: Heart disease - Social History Smoking Status: Never smoker Alcohol use: No CD- Drugs: No Caffeine use: Yes Place of Residence: Home Review of Systems 10-point ROS is otherwise unremarkable Cardiovascular: Chest Pain Physical Examination - Physical Exam General: Alert, In no apparent distress, Oriented x3 HEENT: Atraumatic, PERRLA, Mucous membr. moist/pink, EOMI, Sclerae nonicteric Neck: Supple, 2+ carotid pulse no bruit, No LAD, Without JVD or thyroid abnormality Respiratory: Clear to auscultation bilaterally, Normal air movement Cardiovascular: No edema, Regular rate/rhythm, Normal S1 S2 Capillary refill: <2 Seconds Gastrointestinal: Normal bowel sounds, No tenderness Musculoskeletal: No tenderness Integumentary: No rashes Neurological: Normal speech, Normal strength at 5/5 x4 extr, Normal tone, Normal affect - Studies Laboratory Data (last 24 hrs) 03/08/23 22:42: PT 10.7, INR 0.97 03/08/23 22:42: WBC 10.30, Hgb 14.3, Hct 42.9, Plt Count 243 03/08/23 22:42: Sodium 139, Potassium 3.3 L, BUN 13, Creatinine 1.05, Glucose 107 H, Magnesium 2.2, Total Bilirubin 0.4, AST 58 H, ALT 81 H, Alkaline Phosphatase 70, Lipase 50 Assessment and Plan - Plan Assessment: Chest pain rule out ACS Hypertension Hyperlipidemia Plan: Chest pain rule out ACS Trend troponins, monitor on telemetry, cardiology consult in place. Continue aspirin, statin, blood pressure medications. Appreciate further input from cardiology. Hypertension Hyperlipidemia Continue home medications. DVT PPX: Lovenox Code status: Full Discharge Plan: Home Plan to discharge in: 24 Hours - Advance Directives Does patient have a Living Will: No Does patient have a Durable POA for Healthcare: No - Code Status/Comfort Care Code Status Assessed: Yes (Full code) Critical Care: No Time Spent Managing Pts Care (In Minutes): 55
[2023-03-09] MEDS ORDERED: ENOXAPARIN 100 MG/ML SYR SQ ONE (00:53)
[2023-03-09 01:28] VITALS: BMI 28.6
[2023-03-09] MEDS ORDERED: MORPHINE 2 MG/ML SYR IV PRN (01:31)
[2023-03-09] MEDS ORDERED: ONDANSETRON 4 MG/2 ML VIAL IV PRN (01:31)
[2023-03-09 01:37] VITALS: O2SAT 99
[2023-03-09 06:53] LABS: Specific Gravity 1.013 (1.005-1.030); Urine Bilirubin NEGATIVE (Negative); Urine Blood Negative (Negative); Urine Clarity Clear (Clear); Urine Color Light-Yellow (Yellow); Urine Glucose NEGATIVE (Negative); Urine Protein NEGATIVE (Negative); Urine Urobilinogen Normal (Normal); Urine pH 5.5 (5.0-7.0)
[2023-03-09 07:04] LABS: Absolute Lymphocytes (CBC) 1.8 K/uL (0.7-4.9); Hematocrit 38.8 % (39.6-49.0); Lymphocytes % 19.2 % (15.3-44.8); MCV 89.8 fL (80-100); MPV 9.1 fL (7.6-11.3); RBC Red Blood Cell Count 4.32 M/uL (4.33-5.43)
[2023-03-09 07:15] LABS: Potassium 3.7 mEq/L (3.5-5.1); Troponin High Sensitivity 9.5 pg/mL (<58.9)
--- NOTE | 2023-03-09 07:47 | P.PN ---
Date of Service: 03/09/23 Subjective: ROS: 10 point ROS as noted above, otherwise negative Physical Exam: GEN: Alert, oriented, NAD HEENT: Normal conjunctiva, sclera anicteric CV: Regular rate and rhythm, no edema Pulm: Nonlabored respirations on room air ABD: Soft, nontender, nondistended MSK: No joint tenderness Integumentary: No rashes Neuro: Normal speech, normal affect vitals reviewed Problem List: Chest pain Hypertension Hyperlipidemia Chest pain Trend troponins monitor on telemetry cardiology consulted Continue aspirin, statin Hypertension Hyperlipidemia Continue home medications VTE: Lovenox Code: Full Dispo: Home ~1 day
[2023-03-09] MEDS ORDERED: METFORMIN HCL 500 MG TAB PO SCH (08:00)
[2023-03-09] MEDS ORDERED: Semaglutide [Rybelsus] 14 MG Tablet PO SCH (09:00)
[2023-03-09] MEDS ORDERED: ENOXAPARIN 40 MG/0.4 ML SQ SCH (09:00)
[2023-03-09] MEDS ORDERED: ASPIRIN EC 81 MG TAB PO SCH (09:00)
[2023-03-09] MEDS ORDERED: lisinopriL 20 MG TAB PO SCH (09:00)
[2023-03-09] MEDS ORDERED: AMLODIPINE 5 MG TAB PO SCH (09:00)
[2023-03-09] MEDS ORDERED: SERTRALINE HCL 100 MG TAB PO SCH (09:00)
--- NOTE | 2023-03-09 11:43 | RAD REPORT ---
EXAM DESCRIPTION: RAD - Chest Single View - 03/08/2023 11:32 pm CLINICAL HISTORY: 62 years Male CHEST PAIN TECHNIQUE: One view of the chest. COMPARISON: No prior exams provided for comparison. FINDINGS: The lungs are clear without focal consolidation, effusion, or pneumothorax. The cardiomedi astinal silhouette and central pulmonary vasculature are normal. No acute osseous abnormalities. IMPRESSION: No acute cardiopulmonary abnormalities. Electronically signed by: Kristie Vicente MD 03/08/2023 11:45 PM CDT Due to temporary technical issues with the PACS/Fluency reporting system, reports are being signed by the in house radiologist without review as a courtesy to ensure prompt reporting. The interpreting r adiologist is fully responsible for the content of the report.
--- NOTE | 2023-03-09 11:53 | RAD REPORT ---
EXAM DESCRIPTION: CT - Head Brain Wo Cont - 03/09/2023 12:07 am CLINICAL HISTORY: HEADACHE. TECHNIQUE: Noncontrast CT through the head was performed. Axial, coronal, and sagittal reconstructio ns were created and sent to PACS. This exam was performed according to our departmental dose-optimiza tion program which includes use of Automated Exposure Control, adjustment of the mA and/or kV accordi ng to patient size and/or use of iterative reconstruction technique. COMPARISON: None. FINDINGS: The brain parenchyma appears unremarkable. There is no intra-axial or extra-axial bleed se en. There is no mass or mass effect. The ventricles are unremarkable. The orbital contents appear unr emarkable. The visualized paranasal sinuses and mastoid air cells are patent. No acute fracture is identified. IMPRESSION: No acute intracranial abnormality identified. Electronically signed by: Sweetie Chavez MD 03/08/2023 11:34 PM CDT Due to temporary technical issues with the PACS/Fluency reporting system, reports are being signed by the in house radiologist without review as a courtesy to ensure prompt reporting. The interpreting r adiologist is fully responsible for the content of the report.
[2023-03-09 12:50] VITALS: BP 137/74; TEMP 98.8
--- NOTE | 2023-03-09 13:28 | P.DS ---
Admission Date: 03/08/23 Discharge Date: 03/09/23 Disposition: ROUTINE DISCHARGE Discharge Condition: GOOD Reason for Admission: Chest pain Consultations: Cardiology - Dr. Rodgers Brief History of Present Illness: 62yo M, PMH: hypertension, hyperlipidemia Patient presented to the emergency department with chief complaint of chest pain. He reports that he was at home sitting on the couch watching TV he began to have left-sided chest pain radiating down his left arm described as pressure. His last cardiac evaluation was approximately 7 years ago with a stress test, he has never had a heart catheterization in the past. His initial has not to be troponin was 8.4, potassium 3.3 AST 58 ALT 81. He has no abdominal tenderness EKG without STEMI criteria chest x-ray was negative for acute findings CT head also negative for acute findings which was obtained given his left arm numbness/tingling associated with this chest pain. Hospital Course: Problem List: Chest pain Hypertension Hyperlipidemia Patient presented with left-sided chest pain radiating down his left arm. Troponins were negative x3. Chest xray showed no acute abnormalities. CT head was negative for acute findings. Patient was given aspirin, statin, along with his home medications and had some improvement of his symptoms. Cardiology was consulted and felt there was no further inpatient testing/procedures warranted at this time. Patient is to follow up with Cardiology in the office within 1-2 weeks for an outpatient stress test. New / change in prescriptions: Continue home medications as previously prescribed no change in medications Follow up: PCP 3-5 days Cardiology within 1-2 weeks Physical Exam: GEN: Alert, oriented, NAD HEENT: Normal conjunctiva, sclera anicteric CV: Regular rate and rhythm, no edema Pulm: Nonlabored respirations on room air ABD: Soft, nontender, nondistended MSK: No joint tenderness Integumentary: No rashes Neuro: Normal speech, normal affect Vital Signs/Physical Exam: Temp Pulse Resp BP Pulse Ox 98.8 F 78 20 137/74 96 03/09/23 12:00 03/09/23 12:00 03/09/23 12:00 03/09/23 12:00 03/09/23 12:00 Laboratory Data at Discharge: WBC 9.50 thou/uL (4.3-10.9) 03/09/23 06:28 Hgb 13.4 g/dL (13.6-17.9) L 03/09/23 06:28 Hct 38.8 % (39.6-49.0) L 03/09/23 06:28 Plt Count 237 thou/uL (152-406) 03/09/23 06:28 PT 10.7 SECONDS (9.5-12.5) 03/08/23 22:42 INR 0.97 03/08/23 22:42 Sodium 140 mEq/L (136-145) 03/09/23 06:28 Potassium 3.7 mEq/L (3.5-5.1) 03/09/23 06:28 BUN 11 mg/dL (7-18) 03/09/23 06:28 Creatinine 0.99 mg/dL (0.70-1.30) 03/09/23 06:28 Glucose 101 mg/dL (74-106) 03/09/23 06:28 Magnesium 2.2 mg/dL (1.6-2.4) 03/08/23 22:42 Total Bilirubin 0.4 mg/dL (0.2-1.0) 03/08/23 22:42 AST 58 U/L (15-37) H 03/08/23 22:42 ALT 81 U/L (16-61) H 03/08/23 22:42 Alkaline Phosphatase 70 U/L (45-117) 03/08/23 22:42 Triglycerides 187 mg/dL (<150) H 03/09/23 06:28 Cholesterol 140 mg/dL (<200) 03/09/23 06:28 HDL Cholesterol 62 mg/dL (40-60) H 03/09/23 06:28 Cholesterol/HDL Ratio 2.26 03/09/23 06:28 Lipase 50 U/L (13-75) 03/08/23 22:42 Home Medications: Amlodipine [Norvasc*] 5 mg PO DAILY 03/09/23 Fenofibrate 160 mg PO BEDTIME 03/09/23 Metformin HCl [Glucophage*] 500 mg PO DAILY 03/09/23 Rosuvastatin [Crestor*] 20 mg PO BEDTIME 03/09/23 Semaglutide [Rybelsus] 14 mg PO DAILY 03/09/23 Sertraline [Zoloft*] 100 mg PO DAILY 03/09/23 Ziprasidone [Geodon*] 40 mg PO BEDTIME 03/09/23 lisinopriL [Lisinopril] 20 mg PO DAILY 03/09/23 Physician Discharge Instructions: Patient presented with left-sided chest pain radiating down his left arm. Troponins were negative x3. Chest xray showed no acute abnormalities. CT head was negative for acute findings. Patient was given aspirin, statin, along with his home medications and had some improvement of his symptoms. Cardiology was consulted and felt there was no further inpatient testing/procedures warranted at this time. Patient is to follow up with Cardiology in the office within 1-2 weeks for an outpatient stress test. New / change in prescriptions: Continue home medications as previously prescribed no change in medications Follow up: PCP 3-5 days Cardiology within 1-2 weeks Followup: [facility]IN[facility] [Primary Care Provider] - Time spent managing pt's care (in minutes): 45
--- NOTE | 2023-03-09 18:33 | CON ---
Date of Consultation: 03/09/2023 Reason For Consultation: Chest pain. History Of Present Illness: A 62-year-old male with history of hypertension, dyslipidemia, presented to emergency room with chest pain, retrosternal, radiates to his shoulder and was addressed, rose kruger 2 times and presented to the emergency room. Since hospitalization, no further chest pain. No sahra sea, vomiting, or diaphoresis. Past Medical History: As outlined above in the HPI. Medications: Refer to reconciliation sheet for detailed list. Allergies: NO KNOWN DRUG ALLERGIES. Family History: No premature coronary artery disease or cancer. Social History: He does not smoke or drink. Does not use any drugs. Review of Systems: All systems reviewed and they were negative except what mentioned in HPI. Physical Examination: Vital Signs: Reviewed. Head and Neck: Pupils are equal, reactive to light. Intact eye movements. No JVD. No cervical lym phadenopathy. Neck is supple. Thyroid is not enlarged. Lungs: Clear to auscultation bilaterally. No rhonchi, wheezing, or crackles. No accessory muscle u se. Heart: Regular rate and rhythm. No extra sounds. Abdomen: Soft, nontender. Bowel sounds positive. No organomegaly. No masses or hernia. No rigidi ty or rebound. Extremities: No edema, clubbing, or cyanosis. Intact pulses. Skin: No rash. Neurologic: Alert, awake, oriented x3. No acute focal deficits appreciated. Investigations: Troponins x3 are negative. BUN is 11, creatinine 0.99, and hemoglobin 13.4. Assessment And Recommendations: 1.Chest pain with negative troponin. Atypical features were addressed. From Cardiology standpoint, he can be released. 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 Continue baby aspirin. 2.Hypertension. Blood pressure is controlled. Continue current therapy. 3.Dyslipidemia. Continue statin. SR/MODL Voice ID: [id number] Report ID: [id number]
[2023-03-09] MEDS ORDERED: ZIPRASIDONE 20 MG CAP PO SCH (21:00)
[2023-03-09] MEDS ORDERED: FENOFIBRATE 160 MG TAB PO SCH (21:00)
[2023-03-09] MEDS ORDERED: ATORVASTATIN 40 MG TAB PO SCH (21:00)
[2023-03-09] MEDS ORDERED: ROSUVASTATIN 10 MG TAB PO SCH (21:00)
== END 2023-03-09 14:00 | disposition home or self-care (01) ==
LOC: ER 22:29 → ERHOLD 23:41 → 4TH 03-09 00:39
PROVIDERS: ADMIT Hospitalist; ATTEND Hospitalist
DX: R07.9 Chest pain, unspecified (principal); I10 Essential (primary) hypertension; E78.5 Hyperlipidemia, unspecified
CPT/HCPCS: 85025 ×2; 80048 ×2; 36415; 83735; 85610; 80061; 80076; 81003; 84484 ×3; 83690; 83880; 70450; 71045; J1650 ×2; J2270 ×2; J2405; G0378